=== PATIENT | female | born 1990 | race Two or more races ===

== ENCOUNTER 2024-08-19 04:57 | Day surgery (SDC) | payer BC ==
[2024-08-16 14:28] VITALS: BMI 28.9
[2024-08-19 08:03] VITALS: TEMP 97.8
[2024-08-19 09:27] VITALS: RESP 18
[2024-08-19 09:49] VITALS: PULSE 64
[2024-08-19 10:39] VITALS: BP 102/68
== END 2024-08-19 10:15 | disposition home or self-care (01) ==
LOC: JASU-ENDO 04:57
PROVIDERS: ATTEND Internal Medicine Gastroenterology
PROC: 0DB78ZX Excision of Stomach, Pylorus, Via Natural or Artificial Opening Endoscopic, Diagnostic (ICD-10-PCS; 2024-08-19)
PROC: 0DB68ZX Excision of Stomach, Via Natural or Artificial Opening Endoscopic, Diagnostic (ICD-10-PCS; 2024-08-19)
PROC: 0DB98ZX Excision of Duodenum, Via Natural or Artificial Opening Endoscopic, Diagnostic (ICD-10-PCS; principal; 2024-08-19 08:00)
DX: K29.50 Unspecified chronic gastritis without bleeding (principal); B96.81 Helicobacter pylori [H. pylori] as the cause of diseases classified elsewhere
CPT/HCPCS: 81025; 88305-TC; 88341-TC; 88342-TC

== ENCOUNTER 2024-09-09 05:48 | Day surgery (SDC) | payer BC ==
[2024-09-07 11:40] VITALS: BMI 28.9
[2024-09-09 12:26] VITALS: TEMP 98.2
[2024-09-09 12:44] VITALS: RESP 18
[2024-09-09 12:46] VITALS: BP 100/61; PULSE 57
== END 2024-09-09 13:15 | disposition home or self-care (01) ==
LOC: JASU-ENDO 05:48
PROVIDERS: ATTEND Internal Medicine Gastroenterology
PROC: 0DJD8ZZ Inspection of Lower Intestinal Tract, Via Natural or Artificial Opening Endoscopic (ICD-10-PCS; principal; 2024-09-09 11:00)
DX: Z12.11 Encounter for screening for malignant neoplasm of colon (principal); D50.9 Iron deficiency anemia, unspecified; R10.84 Generalized abdominal pain
CPT/HCPCS: 81025